=== PATIENT | female | born 1945 | race Caucasian/White ===

== ENCOUNTER 2019-09-12 06:10 | Emergency (ER) | payer MEDICARE, BC, SELFPAY ==
[2019-09-12 06:12] VITALS: BP 210/91; PULSE 88; RESP 20; TEMP 36.6; O2SAT 91; BMI 27.4
--- NOTE | 2019-09-12 06:12 | XR_ITS ---
WS: [id number] RIGHT SHOULDER: 3 VIEW(S) TECHNIQUE: Internal and external rotation with Y view. HISTORY: injury COMPARISON: 01/17/2017 Comminuted fracture with impaction is similar in appearance to the prior examination. No new humeral head fracture identified. New comminuted fracture with displacement involving the distal third of the clavicle. Fracture separa lenore the width of the clavicle. Superior displacement of the medial fracture by 14 mm. XR/XR shoulder RT min 2V* [id number] IMPRESSION: 1. New displaced distal clavicle fracture. 2. Unchanged remote RIGHT humeral head fracture with impaction.
--- NOTE | 2019-09-12 06:24 | W.ED.EXTPRO ---
HPI - Extremity Problem General: Chief complaint: Extremity Injury, Upper Stated complaint: SHOULDER PAIN Time Seen by Provider: 09/12/19 06:14 History of Present Illness: HPI Narrative: 73-year-old female complaining of right shoulder pain she rolled out of bed. She is extremely hard of hearing. Her only complaint is right shoulder pain she has an obvious deformity of the clavicle. She denies striking her head denies loss consciousness this happened when she rolled out of bed at the shelter. This was unwitnessed. Associated symptoms: Deny chest pain, fever(s) or rash Review of Systems Const: Denies: fever, chills, body aches, change in appetite, fatigue or malaise ENMT: Denies: throat pain, ear pain, nasal discharge or nasal congestion Card: Denies: chest pain, edema, shortness of breath on exertion or shortness of breath when lying down Resp: Denies: shortness of breath, productive cough or non-productive cough GI: Denies: abdominal pain, nausea, vomiting, vomiting blood, coffee grounds in vomit, diarrhea, constipation, bloating, blood in stool or black tarry stool : Denies: flank pain, difficulty urinating, painful urination, urinary frequency or urinary urgency Musc: Reports: extremity pain (Right arm) Skin/Breast: Denies: rash or itching Physical Exam Const: COMMON NORMALS: no apparent distress GENERAL APPEARANCE: cooperative and comfortable ORIENTATION/CONSCIOUSNESS: Yes awake, Yes oriented to person, Yes oriented to place and Yes oriented to time HENMT: COMMON NORMALS: normocephalic, head/scalp atraumatic, external ears normal, EAC's normal, TM's normal bilaterally, nasal mucous membranes and turbinates normal, moist oral mucous membranes and oropharynx normal HEAD & SCALP: normocephalic and atraumatic NOSE: nasal mucous membranes and turbinates normal EXTERNAL EAR: Yes external ears normal EXTERNAL AUDITORY CANAL: EAC's normal TYMPANIC MEMBRANE: TM's normal bilaterally Eye: COMMON NORMALS: PERRL, EOMs intact bilaterally, conjunctivae normal and no scleral icterus CONJUNCTIVA: Yes conjunctivae normal PUPIL: Yes PERRL Neck/C-Spine: COMMON NORMALS: full ROM, no lymphadenopathy, supple and no JVD Lymph: LYMPHATIC: no lymphadenopathy noted and no lymphedema noted Chest: OTHER: Obvious deformity of the right clavicle Resp: COMMON NORMALS: normal respiratory effort, no retractions, no use of accessory muscles and clear to auscultation bilaterally AUSCULTATION: clear to auscultation bilaterally Cardio: COMMON NORMALS: no JVD, regular rate, regular rhythm and no murmurs RATE: regular rate RHYTHM: regular rhythm GI: COMMON NORMALS: soft to palpation and no hepatosplenomegaly AUSCULTATION: Yes normoactive bowel sounds PALPATION: Yes soft, No tender, No guarding and Yes no hepatosplenomegaly Extremity: COMMON NORMALS: normal to inspection, normal capillary refill, no clubbing, cyanosis or edema, no calf tenderness and no pedal edema Neuro: SENSORIUM/ORIENTATION: Yes oriented to person, Yes oriented to place and Yes oriented to time Skin: COMMON NORMALS: no rashes or lesions noted NARRATIVE SKIN EXAM: Skin tear right elbow superficial GENERAL SKIN EXAM: no rashes or lesions noted Course Vital Signs: Vital signs: Vital Signs Temperature 97.9 F 09/12/19 06:12 Pulse Rate 83 09/12/19 07:20 Respiratory Rate 17 09/12/19 07:20 Blood Pressure 179/70 09/12/19 07:20 Pulse Oximetry 97 09/12/19 07:20 MDM - Extremity (Nontraumatic) MDM Narrative: Medical decision making narrative: In reviewing the chart radiology had felt there was a lateral condyle fracture is difficult to assess because of her very poor bone density is also questional ulnar fracture. Patient has already gone back to the shelter she was in a sling for the clavicle fracture. We made contact with the shelter, patient has a referral to Ortho later today and will get it splinted there if the Ortho feels it is appropriate. Discharge Plan Discharge Patient Disposition: [facility] Clinical Impression: Fracture of clavicle, Closed fracture lateral condyle humerus, Ulnar fracture Condition: Stable Prescriptions: New hydrocodone-acetaminophen 5-325 mg tablet 1 tab PO Q6H PRN (Reason: pain) Qty: 15 RF: 0 Discharge Orders: Discharge Order (Routine); Ordered 09/12/19 Ordered By: Chinmay Horner Referrals: Shaheed Bills MD [Physician] - (clavicle fracture) Discharge Diet: Usual diet Discharge Activity: Limit activity as instructed Activity Restrictions/Additional Instructions: manager social media will make arrangement for orthopedics consult. Posterior splint and sling until then. Discharge Date/Time: 09/12/19 07:22 Coding Level of Care Code ED First Aid Trainer for Chg Fwd Exam Comprehensive
[2019-09-12 06:33] VITALS: BP 194/63; PULSE 89; RESP 19; O2SAT 95
--- NOTE | 2019-09-12 06:35 | XR_ITS ---
WS: [id number] RIGHT ELBOW: 3 VIEW(S) TECHNIQUE: AP, oblique and lateral. HISTORY: pain after fall COMPARISON: 10/03/2016 Severe osteopenia. There is a nondisplaced lucency through the lateral supracondylar region. Not pres ent on the prior study. There is an additional lucency through the proximal ulna. These lucencies are seen only on one image. Moderate joint effusion. Soft tissue edema. XR/XR elbow RT min 3V* [id number] IMPRESSION: 1. Highly suspicious for nondisplaced fracture involving the lateral humeral s upracondylar. 2. Indeterminate but less likely nondisplaced proximal ulnar fracture. 3. Moderate-sized joint effusion.
[2019-09-12 07:20] VITALS: BP 179/70; PULSE 83; RESP 17; O2SAT 97
--- NOTE | 2019-09-13 10:05 | DCPLANNER ---
scale manager had message to schedule a follow up appointment for patient with ortho. scale manager called the ortho clinic, spoke with Marilynn, gave clinic patients information. scale manager was told that patients information would be printed and reviewed. Clinic will call child support case officer and patient with appointment information.
--- NOTE | 2019-09-14 12:46 | DCPLANNER ---
Patient had a follow up appointment scheduled with ortho for 09.13.19, patient did attend the appointment.
== END 2019-09-12 07:22 | disposition skilled nursing facility (03) ==
PROVIDERS: Emergency Provider Family Medicine; Family Provider Nurse Practitioner Family
DX: S42.001A Fracture of unspecified part of right clavicle, initial encounter for closed fracture (principal); S42.451A Displaced fracture of lateral condyle of right humerus, initial encounter for closed fracture; S52.201A Unspecified fracture of shaft of right ulna, initial encounter for closed fracture; W06.XXXA Fall from bed, initial encounter; Y92.129 Unspecified place in nursing home as the place of occurrence of the external cause
CPT/HCPCS: 12345; 73030; 73080; 99281; 99283

== ENCOUNTER 2019-09-26 12:31 | Outpatient (CLI) | payer MEDICARE, MEDICAID, SELFPAY ==
--- NOTE | 2019-09-26 12:42 | XR_ITS ---
WS: [id number] PROCEDURE: XR chest 2V* [id number] CLINICAL INFORMATION: CHANGE IN MENTAL STATUS COMPARISON: February 22, 2019 FINDINGS: Heart: Normal cardiac silhouette. Tortuous thoracic aorta. Calcification. Lungs: Moderate chronic emphysematous changes. No acute pulmonary infiltrates. Bones: Osteopenia. Thoracolumbar scoliosis. Chronic appearing posttraumatic changes right humerus. Ch ronic appearing right distal clavicular fracture. XR/XR chest 2V* [id number] IMPRESSION: 1. Moderate chronic emphysematous changes. No acute pulmonary infiltrates. 2. No focal pneumonia. 3. Thoracolumbar scoliosis. 4. Chronic appearing posttraumatic changes right distal clavicle and right hum erus.
--- NOTE | 2019-09-26 12:43 | CT_ITS ---
WS: [id number] CT HEAD TECHNIQUE: Noncontrast CT of the head obtained from the skullbase to the vertex. CLINICAL INFORMATION: CHANGE IN MENTAL STATUS COMPARISON: February 21, 2019 DLP: 1984.[address] scans at [facility] use at least one of these dose optimization techniques: automat ed exposure control; mA and/or kV adjustment per patient size (includes targeted exams where dose is matched to clinical indication); or iterative reconstruction. FINDINGS: No evidence of intracranial hemorrhage or mass effect. Ventricular system and basal cisterns are webb nt. Moderate small vessel changes with moderate parenchymal volume loss. Unchanged chronic lacunar in farct left lateral basal ganglia. No extra-axial fluid collections. No evidence of mass or mass effec t. Normal shi-white differentiation. Small amount of fluid in the left sphenoid sinus. Mastoid air cells are well aerated. CT/CT head wo con* [id number] IMPRESSION: 1. No evidence of intracranial hemorrhage or mass effect. 2. Moderate small vessel changes with moderate parenchymal volume loss. 3. Small amount of fluid in the left sphenoid sinus. Mastoid air cells well ae rated. 4. No acute intracranial findings.
== END 2019-09-26 12:32 | disposition home or self-care (01) ==
LOC: RADWPI 12:37
PROVIDERS: Family Provider Nurse Practitioner Family; PCP Family Medicine; Visit Provider Family Medicine
DX: R41.82 Altered mental status, unspecified (principal); J43.8 Other emphysema; M41.85 Other forms of scoliosis, thoracolumbar region
CPT/HCPCS: 70450; 71046

== ENCOUNTER → 2019-10-11 15:42 | Outpatient (BNVA) | payer MEDICARE, SELFPAY | PROVIDERS: Family Provider Nurse Practitioner Family; PCP Family Medicine; Visit Provider Orthopaedic Surgery | DX: S50.01XA Contusion of right elbow, initial encounter (principal); M25.421 Effusion, right elbow; M85.88 Other specified disorders of bone density and structure, other site; X58.XXXA Exposure to other specified factors, initial encounter | CPT/HCPCS: 73070 ==

== ENCOUNTER 2022-03-12 16:49 | Observation (INO) | payer MEDICARE, BC, SELFPAY ==
[2022-03-12 17:11] VITALS: BP 132/82; PULSE 73; RESP 16; TEMP 36.5; O2SAT 96; BMI 26.6
--- NOTE | 2022-03-12 17:58 | ED_ITS ---
HPI - Recheck/Abnormal Lab/Rx General: Chief Complaint: Recheck/Abnormal Lab/Rx Stated Complaint: Hyperkalemia Time Seen by Provider: 03/12/22 17:36 Source: patient Mode of arrival: ambulatory Limitations: no limitations History of Present Illness: 76-year-old female who is here from the shelter she has dementia she states she has been feeling well she had no vomiting no diarrhea but she states that shelter states that they denae labs and her creatinine and potassium were potassium was 6.2 and they have been giving her potassium supplement. Review of Systems Const: Denies: fever(s), chills, body aches or change in appetite Eyes: Denies: blurry vision or eye discomfort ENMT: Denies: throat pain or dental pain Card: Denies: chest pain Resp: Denies: dyspnea GI: Denies: abdominal pain, nausea, vomiting or diarrhea : Denies: dysuria Musc: Denies: neck pain or back pain Skin/Breast: Denies: rash Neuro: Denies: headache(s) Psych: Denies: depression Andry/Lymph: Denies: easy bruising All/Imm: Denies: urticaria PFSH ED PFSH: Medical History (Updated 03/12/22 @ 20:26 by Su Rivera MD) Dementia Social History (Updated 03/12/22 @ 17:59 by Su Rivera MD) Substance/Drug Use: never Physical Exam Const: COMMON NORMALS: no acute distress, patient oriented x3 and healthy appearing HENMT: COMMON NORMALS: normocephalic and atraumatic HEAD & SCALP: normocephalic and atraumatic Eye: COMMON NORMALS: Equal, round and reactive pupils present and EOMs intact bilaterally PUPIL: Yes Equal, round and reactive pupils present Neck/C-Spine: COMMON NORMALS: full ROM and supple Chest: COMMONS NORMALS: normal inspection of the chest and normal palpation of entire chest wall Resp: COMMON NORMALS: normal respiratory effort, No retractions, No use of accessory muscles and clear to auscultation bilaterally AUSCULTATION: clear to auscultation bilaterally Cardio: COMMON NORMALS: regular rate, regular rhythm and No murmurs present (Cardio) RATE: regular rate RHYTHM: regular rhythm GI: COMMON NORMALS: Normal to inspection, nondistended, normoactive bowel sounds present, Soft to palpation, non-tender and no masses PALPATION: Yes Soft to palpation Extremity: COMMON NORMALS: normal to inspection and full ROM Neuro: COMMON NORMALS: patient oriented x3, moves all extremities and no focal motor deficits Psych: COMMON NORMALS: mental status grossly normal, Normal thought process present and cooperative THOUGHT PROCESS: Normal thought process present Skin: COMMON NORMALS: no rashes or lesions noted and no wounds GENERAL SKIN EXAM: no rashes or lesions noted Course Vital Signs: Vital signs: Vital Signs Temperature 97.7 F 03/12/22 17:11 Pulse Rate 87 03/12/22 20:16 Respiratory Rate 22 H 03/12/22 20:16 Blood Pressure 133/86 03/12/22 20:16 Pulse Oximetry 95 03/12/22 20:16 Oxygen Delivery Me thod 03/12/22 20:16 MDM - Recheck/Abnormal Lab/Rx Medical Decision Making Patient presents here with hyperkalemia along with slight acute kidney injury she is still making urine she does take a potassium supplement at the shelter she is also on Lasix. We will give IV fluids insulin D50 and watch for observation at this time she has no EKG changes. Lab Data : 03/12/22 18:15 03/12/22 19:15 Laboratory Results WBC 10.3 10^3/uL (4.0-10.0) H 03/12/22 18:15 RBC 3.95 10^6/uL (4.1-5.3) L 03/12/22 18:15 Hgb 11.8 g/dL (11.5-15.3) 03/12/22 18:15 Hct 37.5 % (37.0-47.0) 03/12/22 18:15 MCV 94.9 fl (81-99) 03/12/22 18:15 MCH 29.9 pg (28.0-34.0) 03/12/22 18:15 MCHC 31.5 g/dL (30.0-36.0) 03/12/22 18:15 RDW 13.3 % (12.1-15.1) 03/12/22 18:15 Plt Count 323 10^3/cmm (130-400) 03/12/22 18:15 MPV 11.4 fL (7.4-10.4) H 03/12/22 18:15 Neut % (Auto) 60.1 % 03/12/22 18:15 Lymph % (Auto) 27.0 % 03/12/22 18:15 Kendall % (Auto) 8.6 % 03/12/22 18:15 Eos % (Auto) 3.1 % 03/12/22 18:15 Baso % (Auto) 0.7 % 03/12/22 18:15 Neut # (Auto) 6.18 10^3/uL (1.8-7.7) 03/12/22 18:15 Lymph # (Auto) 2.8 10^3/uL (0.8-4.8) 03/12/22 18:15 Kendall # (Auto) 0.9 10^3/uL (0.2-0.9) 03/12/22 18:15 Eos # (Auto) 0.3 10^3/uL (0.0-0.8) 03/12/22 18:15 Baso # (Auto) 0.1 10^3/uL (0.0-0.1) 03/12/22 18:15 Nucleated RBC % (auto) 0 % 03/12/22 18:15 Nucleated RBCs # 0.0 /100WBC 03/12/22 18:15 Sodium 129 mmol/L (136-145) L 03/12/22 19:15 Potassium 6.3 mmol/L (3.5-5.1) H 03/12/22 19:15 Chloride 95 mmol/L (98-107) L 03/12/22 19:15 Carbon Dioxide 26 mmol/L (22-29) 03/12/22 19:15 Anion Gap 14.3 (5-19) 03/12/22 19:15 BUN 34 mg/dL (8-23) H 03/12/22 19:15 Creatinine 2.1 mg/dL (0.5-0.9) H 03/12/22 19:15 GFR Calculation Not Reportable 03/12/22 19:15 Glucose 89 mg/dL (65-115) 03/12/22 19:15 Calculated Osmolality 275 mOsm/kg (285-295) L 03/12/22 19:15 Calcium 9.7 mg/dL (8.5-10.5) 03/12/22 19:15 Total Bilirubin 0.2 mg/dL (0.15-1.2) 03/12/22 18:15 ALT 11 U/L (0-33) 03/12/22 18:15 Total Protein 7.7 g/dL (6.6-8.7) 03/12/22 18:15 Albumin 4.6 g/dL (3.5-5.2) 03/12/22 18:15 Globulin 3.1 g/dL (1.3-4.6) 03/12/22 18:15 EKG Data EKG 1: I personally reviewed and interpreted this EKG as follows: EKG interpretation date: 03/12/22 EKG interpretation time: 18:24 Interpretation: nsr hr [address] or t wave abnormalities qrs 80 qtc 373 Discharge Plan Discharge Patient Disposition: Admitted As Inpatient Clinical Impression: Acute hyperkalemia Prescriptions: No Action albuterol sulfate 90 mcg/actuation HFA aerosol inhaler 2 puff INHALATION Q6H PRN cetirizine [Zyrtec] 10 mg tablet 5 mg PO DAILY PRN budesonide-formoterol [Symbicort] 80-4.5 mcg/actuation HFA aerosol inhaler 2 puff INHALATION BID alendronate [Fosamax] 70 mg tablet PO acetaminophen [Tylenol] 325 mg capsule 325 mg PO QID PRN polyethylene glycol 3350 [Miralax] 17 gram/dose powder 17 gm PO DAILY ranitidine HCl 300 mg capsule 300 mg PO BID furosemide [Lasix] 40 mg tablet 40 mg PO DAILY potassium chloride 10 mEq capsule, extended release 10 meq PO DAILY ondansetron HCl [Zofran] 4 mg tablet 4 mg PO Q6H hydrocodone-acetaminophen 5-325 mg tablet 1 tab PO Q6H PRN (Reason: pain) Qty: 15 0RF Referrals: Tony Arana MD [Primary Care Provider] - Coding Level of Care Code ED Training Engineer for Chg Fwd Exam Comprehensive
--- NOTE | 2022-03-12 18:01 | ECG_ITS ---
[facility] Test Date: 2022-03-12 Pat Name: Kaley Chen Department: Room: Gender: Female Health Science Instructor: : 1945 Requested By: Su Rivera Order Number: [id number] Juan Jose MD: Jeffery Galvez M.D. Measurements Intervals [place] Rate: 75 P: 74 NC: 150 QRS: 85 QRSD: 80 T: 51 QT: 344 QTc: 385 Interpretive Statements SINUS RHYTHM LOW QRS VOLTAGE IN PRECORDIAL LEADS [QRS DEFLECTION < 1.0 mV IN CHEST LEADS] Compared to ECG 02/21/2019 16:35:31 Low QRS voltage now present Electronically Signed On 03-14-2022 22:02:56 CDT by Jeffery Galvez M.D. [id number]
[2022-03-12 18:17] VITALS: BP 160/62; PULSE 76; RESP 16; O2SAT 93
[2022-03-12 18:22] LABS: Basophils # 0.1 10^3/uL (0.0-0.1); Basophils % 0.7 %; Eosinophils # 0.3 10^3/uL (0.0-0.8); Eosinophils % 3.1 %; Hematocrit 37.5 % (37.0-47.0); Hemoglobin 11.8 g/dL (11.5-15.3); Lymphocytes # 2.8 10^3/uL (0.8-4.8); Mean Corpuscular HGB Conc 31.5 g/dL (30.0-36.0); Mean Corpuscular Hemoglobin 29.9 pg (28.0-34.0); Mean Corpuscular Volume 94.9 fl (81-99); Mean Platelet Volume 11.4 fL (7.4-10.4); Monocytes # 0.9 10^3/uL (0.2-0.9); Monocytes % 8.6 %; Neutrophils # 6.18 10^3/uL (1.8-7.7); Neutrophils % 60.1 %; Nucleated Red Blood Cells % 0 %; Platelet Count 323 10^3/cmm (130-400); Red Blood Count 3.95 10^6/uL (4.1-5.3); Red Cell Distribution Width 13.3 % (12.1-15.1); White Blood Count 10.3 10^3/uL (4.0-10.0)
[2022-03-12 19:35] LABS: Anion Gap 14.3 (5-19); Blood Urea Nitrogen 34 mg/dL (8-23); Calcium 9.7 mg/dL (8.5-10.5); Carbon Dioxide 26 mmol/L (22-29); Chloride 95 mmol/L (98-107); Glucose 89 mg/dL (65-115); Osmolality Calculated 275 mOsm/kg (285-295); Potassium 6.3 mmol/L (3.5-5.1); Sodium 129 mmol/L (136-145)
[2022-03-12] MEDS: insulin regular-human 100 units/1 mL 10 UNIT IVP (20:09)
[2022-03-12] MEDS: dextrose 50% syringe 50 mL IVP (20:11)
[2022-03-12] MEDS: sodium chloride 0.9% 1,000 ML 999 ML IV (20:11)
[2022-03-12 20:16] VITALS: BP 133/86; PULSE 87; RESP 22; O2SAT 95
[2022-03-12 20:48] VITALS: BP 143/84; BP 99/65; PULSE 87; PULSE 99; RESP 15; RESP 16; TEMP 36.4; TEMP 36.5; O2SAT 94
[2022-03-12 20:49] LABS: Glucose Point of Care 164 mg/dL (70-110)
--- NOTE | 2022-03-12 20:50 | P.HP_ITS ---
Providers/Chief Complaint Admitting Physician: Jose Willett MD Primary Care Provider: Tony Arana MD Chief Complaint: Hyperkalemia History of Present Illness Kaley Chen is a 76 year old female with past medical history of hypertension COPD, dementia ,[facility] resident was brought from the [facility] for evaluation of abnormal labs, BMP drawn at [facility] had shown, hyperkalemia with serum potassium of 6.2, as well as elevated serum creatinine , Patient is on oral potassium supplement at [facility]. Currently she denies any chest pain shortness of breath nausea vomiting abdominal pain diarrhea constipation. She is being admitted for the monitoring of abnormal labs. EKG done in the ER: Has not shown any signs of hyperkalemia: EKG is sinus rhythm with low QRS voltage in precordial leads. Patient received dextrose and insulin in the ER. Her other pertinent labs: WBC 10.3, H&H 11/37 , PLT : 323 , serum sodium 129, serum potassium 6.3, BUN:34 , serum creatinine 2.1 Review of Systems General: Reports: 10 or more systems reviewed and unremarkable except in HPI and below Const: Denies: fever(s) Card: Denies: swelling of feet/ankles Resp: Denies: dyspnea or productive cough GI: Denies: abdominal pain, nausea, vomiting, diarrhea or constipation Medications/Allergies Home Medications Medication Instructions Recorded Confirmed Last Taken Type hydrocodone 5 mg-acetaminophen 325 1 tab PO Q6H PRN pain #15 tabs 09/12/19 11/12/19 Unknown Rx mg tablet acetaminophen 325 mg capsule 325 mg PO QID PRN 09/13/19 11/12/19 Unknown History (Tylenol) albuterol sulfate 90 mcg/actuation 2 puff inhalation Q6H PRN 09/13/19 11/12/19 Unknown History aerosol inhaler alendronate 70 mg tablet (Fosamax) PO 09/13/19 11/12/19 Unknown History budesonide-formoterol HFA 80 2 puff inhalation BID 09/13/19 11/12/19 Unknown History mcg-4.5 mcg/actuation aerosol inhaler (Symbicort) cetirizine 10 mg tablet (Zyrtec) 5 mg PO DAILY PRN 09/13/19 11/12/19 Unknown History furosemide 40 mg tablet (Lasix) 40 mg PO DAILY 09/13/19 11/12/19 Unknown History ondansetron HCl 4 mg tablet 4 mg PO Q6H 09/13/19 11/12/19 Unknown History (Zofran) polyethylene glycol 3350 17 17 gm PO DAILY 09/13/19 11/12/19 Unknown History gram/dose oral powder (Miralax) potassium chloride 10 mEq 10 meq PO DAILY 09/13/19 11/12/19 Unknown History capsule,extended release ranitidine HCl 300 mg capsule 300 mg PO BID 09/13/19 11/12/19 Unknown History Allergies Allergy/AdvReac Type Severity Reaction Status Date / Time Penicillins Allergy Unknown Verified 11/12/19 13:53 PFSH Acute PFSH: Medical History (Updated 03/12/22 @ 21:04 by Jose Willett MD) Dementia Social History (Updated 03/12/22 @ 17:59 by Su Rivera MD) Substance/Drug Use: never Vitals/I&O/Wt Last Vital Signs Temp 97.7 F 03/12/22 17:11 Pulse 87 03/12/22 20:16 Resp 22 H 03/12/22 20:16 BP 133/86 03/12/22 20:16 Pulse Ox 95 03/12/22 20:16 O2 Del Method 03/12/22 20:16 Weight last 48 hrs Weight 74.843 kg Physical Exam HENMT: COMMON NORMALS: normocephalic and atraumatic HEAD & SCALP: no rmocephalic and atraumatic Resp: COMMON NORMALS: clear to auscultation bilaterally EFFORT & INSPECTION: Yes symmetric chest movement AUSCULTATION: clear to auscultation bilaterally Cardio: COMMON NORMALS: regular rate, regular rhythm, S1 normal heart sound present, S2 normal heart sound present, No gallops present (Cardio), No murmurs present (Cardio), No rub (Cardio) and Peripheral pulses 2+ throughout RATE: regular rate RHYTHM: regular rhythm HEART SOUNDS: S1 normal heart sound present and S2 normal heart sound present PERIPHERAL PULSES: Peripheral pulses 2+ throughout GI: COMMON NORMALS: Normal to inspection, nondistended, normoactive bowel sounds present, Soft to palpation, non-tender, No hepatosplenomegaly present and no masses AUSCULTATION: Yes normoactive bowel sounds PALPATION: Yes Soft to palpation RECTAL EXAM: deferred Extremity: COMMON NORMALS: no clubbing, cyanosis or edema and no pedal edema Neuro: COMMON NORMALS: patient oriented x3 Data : 03/12/22 18:15 03/12/22 19:15 A&P Assessment and plan (1) Acute hyperkalemia: (2) Hypertension: (3) COPD (chronic obstructive pulmonary disease): (4) Acute kidney injury superimposed on CKD: Plan 76 year old female with past medical history of hypertension COPD, dementia ,[facility] resident was brought from the [facility] for evaluation of abnormal labs, BMP drawn at [facility] had shown, hyperkalemia with serum potassium of 6.2, as well as elevated serum creatinine. Assessment: Acute hyperkalemia Euvolemic hyponatremia HARITHA on CKD versus CKD: Currently baseline serum creatinine is unknown Hypertension COPD Dementia Plan: Patient has received dextrose and insulin in the ER, for now we will monitor BMP, continue telemetry monitoring. Current serum creatinine is 2.1, baseline serum creatinine is unknown Random urine sodium Random urine creatinine Random total protein FeNA Random UPCR Follow urinalysis Urine osmolality Serum osmolality TSH Random cortisol Avoid nephrotoxic's Monitor intake output charting Continue gentle IV hydration with normal saline at 75 cc an hour Stop p.o. potassium Continue home inhalers CODE STATUS: Full code DVT prophylaxis: On heparin Attestations Medical Necessity Statement*: Patient is in hospital for management of acute hyperkalemia. Coding Level of Care Code Acute Cafe Operator for Javier Fwd Exam Detailed Diagnoses Acute hyperkalemia E87.5 Hypertension I10 COPD (chronic obstructive pulmonary disease) J44.9 Acute kidney injury superimposed on CKD N17.9; N18.9
[2022-03-12 20:51] LABS: Alanine Aminotransferase 7 U/L (0-33); Albumin Level 4.2 g/dL (3.5-5.2); Alkaline Phosphatase 25 U/L (35-105); Aspartate Amino Transferase 13 U/L (0-32); Globulin 2.9 g/dL (1.3-4.6); Total Bilirubin 0.3 mg/dL (0.15-1.2); Total Protein 7.1 g/dL (6.6-8.7)
[2022-03-12 20:53] VITALS: BP 133/86; PULSE 87; RESP 22; O2SAT 95
[2022-03-12 21:58] VITALS: BMI 26.6
[2022-03-12 22:18] VITALS: BP 119/69; PULSE 88; RESP 22; TEMP 36.6; O2SAT 99
[2022-03-12] MEDS: sodium chloride 0.9% 1,000 ML 75 ML IV (22:49)
[2022-03-12] MEDS: heparin 5,000 unit/mL INJ 1 mL 5000 UNIT SUBCUT (22:49)
[2022-03-13] VITALS (7 sets, daily range): BP systolic 99–157; BP diastolic 65–86; PULSE 75–88; RESP 15–18; TEMP 36.4–36.6; O2SAT 93–98
[2022-03-13 05:35] LABS: Basophils # 0.1 10^3/uL (0.0-0.1); Basophils % 0.6 %; Eosinophils # 0.1 10^3/uL (0.0-0.8); Eosinophils % 0.9 %; Hematocrit 35.9 % (37.0-47.0); Lymphocytes # 2.1 10^3/uL (0.8-4.8); Lymphocytes % 19.5 %; Mean Corpuscular HGB Conc 30.6 g/dL (30.0-36.0); Mean Corpuscular Hemoglobin 29.6 pg (28.0-34.0); Mean Corpuscular Volume 96.5 fl (81-99); Mean Platelet Volume 10.8 fL (7.4-10.4); Monocytes # 0.6 10^3/uL (0.2-0.9); Monocytes % 5.8 %; Neutrophils # 7.63 10^3/uL (1.8-7.7); Neutrophils % 72.6 %; Nucleated Red Blood Cells % 0 %; Platelet Count 302 10^3/cmm (130-400); Red Blood Count 3.72 10^6/uL (4.1-5.3); Red Cell Distribution Width 13.3 % (12.1-15.1); White Blood Count 10.5 10^3/uL (4.0-10.0)
[2022-03-13 06:08] LABS: Anion Gap 12.8 (5-19); Blood Urea Nitrogen 32 mg/dL (8-23); Calcium 9.6 mg/dL (8.5-10.5); Carbon Dioxide 25 mmol/L (22-29); Chloride 99 mmol/L (98-107); Creatinine Clr Calc Pharmacy 24.3642; Glucose 93 mg/dL (65-115); Magnesium 2.1 mg/dL (1.7-2.3); Osmolality Calculated 279 mOsm/kg (285-295); Phosphorus 4.3 mg/dL (2.5-4.5); Potassium 5.8 mmol/L (3.5-5.1); Sodium 131 mmol/L (136-145)
[2022-03-13] MEDS: heparin 5,000 unit/mL INJ 1 mL 5000 UNIT SUBCUT ×2 (08:52→20:48)
[2022-03-13] MEDS: pantoprazole DR 40 mg Tablet PO (10:01)
[2022-03-13] MEDS: polyethylene glycol 3350 Pkt 17 gm PO (10:01)
--- NOTE | 2022-03-13 14:16 | P.PN_ITS ---
Subjective Subjective: She is pleasantly confused, cannot tell me her whereabouts. Denies any pain. Vitals/I&O/Wt Last Vital Signs Temp 97.8 F 03/13/22 11:53 Pulse 75 03/13/22 11:53 Resp 16 03/13/22 11:53 BP 115/72 03/13/22 11:53 Pulse Ox 98 03/13/22 11:53 O2 Del Method 03/13/22 11:53 03/12/22 03/13/22 03/13/22 22:59 06:59 14:59 Intake Total 1480 / 1480 0 / 1480 240 / 240 Balance 1480 / 1480 0 / 1480 240 / 240 Weight last 48 hrs Weight 74.843 kg Weight 74.843 kg Physical Exam Narrative: She is awake and alert. She has removed her dentures and is cleaning them with a napkin. Const: COMMON NORMALS: alert GENERAL APPEARANCE: cooperative ORIENTATION/CONSCIOUSNESS: Yes awake HENMT: COMMON NORMALS: oropharynx normal Neck/C-Spine: COMMON NORMALS: no JVD Resp: COMMON NORMALS: normal respiratory effort and clear to auscultation bilaterally AUSCULTATION: clear to auscultation bilaterally Cardio: COMMON NORMALS: no JVD, regular rhythm, S1 normal heart sound present, S2 normal heart sound present and No murmurs present (Cardio) RHYTHM: regular rhythm HEART SOUNDS: S1 normal heart sound present and S2 normal heart sound present GI: COMMON NORMALS: Normal to inspection, nondistended, normoactive bowel sounds present, Soft to palpation and non-tender PALPATION: Yes Soft to palpation Extremity: COMMON NORMALS: no joint enlargement and no pedal edema Neuro: COMMON NORMALS: moves all extremities SENSORIUM/ORIENTATION: Yes alert Skin: COMMON NORMALS: no rashes or lesions noted GENERAL SKIN EXAM: no rashes or lesions noted Data : 03/13/22 04:35 03/13/22 04:35 A&P Assessment and plan (1) Acute hyperkalemia: Potassium noted to be decreasing. We will recheck again BMP this afternoon. Change diet to low potassium. Continue to withhold potassium supplement and ARB (2) Acute kidney injury superimposed on CKD: Renal function appears to have stabilized with minimal improvement in HARITHA, creatinine down to 2, BUN down to 32. Continue gentle fluid challenge. Hold Lasix. Hold ARB. (3) Hypertension: (4) COPD (chronic obstructive pulmonary disease): Plan Euvolemic hyponatremia: Improving. Continue regular diet. Dementia Attestations Medical Necessity Statement*: Continue hospitalization for assessment of management of hyperkalemia, HARITHA on CKD. Coding Level of Care Code Acute Manager Quality Improvement for g Fwd Exam Comprehensive Diagnoses Acute hyperkalemia E87.5 Acute kidney injury superimposed on CKD N17.9; N18.9 Hypertension I10 COPD (chronic obstructive pulmonary disease) J44.9
[2022-03-13 15:08] LABS: Anion Gap 12.5 (5-19); Blood Urea Nitrogen 32 mg/dL (8-23); Calcium 9.2 mg/dL (8.5-10.5); Carbon Dioxide 23 mmol/L (22-29); Chloride 100 mmol/L (98-107); Creatinine Clr Calc Pharmacy 24.3642; Glucose 100 mg/dL (65-115); Osmolality Calculated 277 mOsm/kg (285-295); Potassium 5.5 mmol/L (3.5-5.1); Sodium 130 mmol/L (136-145)
[2022-03-13] MEDS: acetaminophen 325 mg Tablet 650 MG PO (17:27)
[2022-03-13] MEDS: sodium chloride 0.9% 1,000 ML 75 ML IV (17:28)
[2022-03-14] VITALS (7 sets, daily range): BP systolic 123–150; BP diastolic 71–81; PULSE 75–97; RESP 16–18; TEMP 36.6–36.8; O2SAT 90–95
[2022-03-14 03:18] LABS: Urine Protein Random 13 mg/dL
[2022-03-14] MEDS: sodium chloride 0.9% 1,000 ML 75 ML IV ×2 (05:45→18:48)
[2022-03-14 06:09] LABS: Basophils # 0.1 10^3/uL (0.0-0.1); Basophils % 0.7 %; Eosinophils # 0.3 10^3/uL (0.0-0.8); Eosinophils % 4.6 %; Hematocrit 32.5 % (37.0-47.0); Hemoglobin 10.2 g/dL (11.5-15.3); Lymphocytes # 1.8 10^3/uL (0.8-4.8); Lymphocytes % 23.8 %; Mean Corpuscular HGB Conc 31.4 g/dL (30.0-36.0); Mean Corpuscular Volume 95.6 fl (81-99); Mean Platelet Volume 10.8 fL (7.4-10.4); Monocytes # 0.6 10^3/uL (0.2-0.9); Monocytes % 8.6 %; Neutrophils # 4.53 10^3/uL (1.8-7.7); Neutrophils % 61.8 %; Nucleated Red Blood Cells % 0 %; Platelet Count 272 10^3/cmm (130-400); Red Cell Distribution Width 13.4 % (12.1-15.1); White Blood Count 7.3 10^3/uL (4.0-10.0)
[2022-03-14 06:46] LABS: Anion Gap 15.4 (5-19); Blood Urea Nitrogen 26 mg/dL (8-23); Calcium 9.2 mg/dL (8.5-10.5); Carbon Dioxide 24 mmol/L (22-29); Chloride 108 mmol/L (98-107); Glucose 83 mg/dL (65-115); Osmolality Calculated 298 mOsm/kg (285-295); Potassium 5.4 mmol/L (3.5-5.1); Sodium 142 mmol/L (136-145)
[2022-03-14] MEDS: polyethylene glycol 3350 Pkt 17 gm PO (08:52)
[2022-03-14] MEDS: heparin 5,000 unit/mL INJ 1 mL 5000 UNIT SUBCUT ×2 (08:52→19:57)
[2022-03-14] MEDS: pantoprazole DR 40 mg Tablet PO (08:52)
--- NOTE | 2022-03-14 20:27 | P.PN_ITS ---
Subjective Subjective: She reports he is doing well. Denies pain or discomfort. Pleasantly confused. Vitals/I&O/Wt Last Vital Signs Temp 98.2 F 03/14/22 16:00 Pulse 75 03/14/22 16:00 Resp 16 03/14/22 16:00 BP 123/71 03/14/22 16:00 Pulse Ox 95 03/14/22 16:00 O2 Del Method 03/14/22 16:00 03/14/22 03/14/22 03/14/22 06:59 14:59 22:59 Intake Total 1000 / 2960 240 / 240 1098.75 / 1338.75 Balance 1000 / 2960 240 / 240 1098.75 / 1338.75 Weight last 48 hrs Weight 74.843 kg Physical Exam Const: COMMON NORMALS: alert GENERAL APPEARANCE: cooperative ORIENTATION/CONSCIOUSNESS: Yes awake HENMT: COMMON NORMALS: oropharynx normal Neck/C-Spine: COMMON NORMALS: no JVD Resp: COMMON NORMALS: normal respiratory effort and clear to auscultation bilaterally AUSCULTATION: clear to auscultation bilaterally Cardio: COMMON NORMALS: no JVD, regular rhythm, S1 normal heart sound present, S2 normal heart sound present and No murmurs present (Cardio) RHYTHM: regular rhythm HEART SOUNDS: S1 normal heart sound present and S2 normal heart sound present GI: COMMON NORMALS: Normal to inspection, nondistended, normoactive bowel sounds present, Soft to palpation and non-tender PALPATION: Yes Soft to palpation Extremity: COMMON NORMALS: no joint enlargement and no pedal edema Neuro: COMMON NORMALS: moves all extremities SENSORIUM/ORIENTATION: Yes alert Skin: COMMON NORMALS: no rashes or lesions noted GENERAL SKIN EXAM: no rashes or lesions noted Data : 03/14/22 05:28 03/14/22 05:28 A&P Assessment and plan (1) Acute hyperkalemia: Continue to gradually improve hyperkalemia. Continue to withhold potassium supplement and ARB. Low potassium diet. (2) Acute kidney injury superimposed on CKD: Now improving HARITHA, creatinine at 1.6. Per discussion with case management cannot discharge today, should be able to discharge to long-term tomorrow. Continue gentle fluid challenge. Hold Lasix. Hold ARB. (3) Hypertension: (4) COPD (chronic obstructive pulmonary disease): Plan Euvolemic hyponatremia: Improving. Continue regular diet. Dementia Attestations Medical Necessity Statement*: Continue hospitalization for assessment of hyperkalemia, HARITHA, pending return to residential facility. Coding Level of Care Code Acute Repair Supervisor for Chg Fwd Diagnoses Acute hyperkalemia E87.5 Acute kidney injury superimposed on CKD N17.9; N18.9 Hypertension I10 COPD (chronic obstructive pulmonary disease) J44.9
[2022-03-15] VITALS: BP 138/69; PULSE 68; RESP 15; TEMP 36.5; O2SAT 96
[2022-03-15 04:00] VITALS: BP 131/77; PULSE 78; RESP 16; TEMP 36.6; O2SAT 96
[2022-03-15 05:04] LABS: Basophils % 0.5 %; Eosinophils # 0.3 10^3/uL (0.0-0.8); Eosinophils % 4.3 %; Hematocrit 31.1 % (37.0-47.0); Hemoglobin 9.8 g/dL (11.5-15.3); Lymphocytes # 2.2 10^3/uL (0.8-4.8); Lymphocytes % 27.3 %; Mean Corpuscular HGB Conc 31.5 g/dL (30.0-36.0); Mean Corpuscular Hemoglobin 30.1 pg (28.0-34.0); Mean Corpuscular Volume 95.4 fl (81-99); Mean Platelet Volume 10.2 fL (7.4-10.4); Monocytes # 0.7 10^3/uL (0.2-0.9); Monocytes % 8.4 %; Neutrophils # 4.67 10^3/uL (1.8-7.7); Neutrophils % 59.2 %; Nucleated Red Blood Cells % 0 %; Platelet Count 261 10^3/cmm (130-400); Red Blood Count 3.26 10^6/uL (4.1-5.3); Red Cell Distribution Width 13.5 % (12.1-15.1); White Blood Count 7.9 10^3/uL (4.0-10.0)
[2022-03-15 05:23] LABS: Blood Urea Nitrogen 18 mg/dL (8-23); Calcium 8.8 mg/dL (8.5-10.5); Carbon Dioxide 24 mmol/L (22-29); Chloride 107 mmol/L (98-107); Glucose 82 mg/dL (65-115); Osmolality Calculated 291 mOsm/kg (285-295); Sodium 140 mmol/L (136-145)
[2022-03-15 07:53] VITALS: PULSE 86; RESP 16; O2SAT 93
[2022-03-15 08:00] VITALS: BP 160/84; PULSE 85; RESP 15; TEMP 36.8; O2SAT 93
[2022-03-15] MEDS: heparin 5,000 unit/mL INJ 1 mL 5000 UNIT SUBCUT (08:07)
[2022-03-15] MEDS: pantoprazole DR 40 mg Tablet PO (08:07)
[2022-03-15] MEDS: sodium chloride 0.9% 1,000 ML 75 ML IV (08:07)
[2022-03-15] MEDS: polyethylene glycol 3350 Pkt 17 gm PO (08:07)
--- NOTE | 2022-03-15 09:08 | PC.SOCIAL ---
Imm update Imm updated with patient at bedside, left copy of page 2 at bedside. Patient verbalized understanding. Copy in chart initialed, dated and timed.
[2022-03-15 12:00] VITALS: BP 146/87; PULSE 76; RESP 16; TEMP 36.8; O2SAT 93
--- NOTE | 2022-03-15 12:37 | P.DS_ITS ---
Discharge Providers Date of Admission: 03/12/22 20:43 Date of Discharge: March 15, 2022 Attending Provider at Admission: Jose Willett MD Attending Provider at Discharge: Jaxon Pierre MD Primary Care Provider: Tony Arana MD Diagnoses at Discharge Discharge Diagnosis (1) Acute hyperkalemia: Status: Acute (2) Acute kidney injury superimposed on CKD: Status: Acute (3) Hypertension: Status: Acute (4) COPD (chronic obstructive pulmonary disease): Status: Acute Reason for Visit Reason for Visit: Hyperkalemia Brief History: History as per HPI: Kaley Chen is a 76 year old female with past medical history of hypertension COPD, dementia ,halfway resident was brought from the halfway for evaluation of abnormal labs, BMP drawn at halfway had shown, hyperkalemia with serum potassium of 6.2, as well as elevated serum creatinine. Patient is on oral potassium supplement at halfway. Currently she denies any chest pain shortness of breath nausea vomiting abdominal pain diarrhea constipation. She is being admitted for the monitoring of abnormal labs. EKG done in the ER: Has not shown any signs of hyperkalemia: EKG is sinus rhythm with low QRS voltage in precordial leads.? Patient received dextrose and insulin in the ER. Her other pertinent labs: WBC 10.3, H&H 11/37 , PLT : 323 , serum sodium 129, serum potassium 6.3, BUN:34 , serum creatinine 2.1 Hospital Course Hospital Course Patient was admitted for further evaluation and management of hyperkalemia and what seems to be HARITHA on CKD. Her abnormal labs are most likely secondary polypharmacy at halfway. Her home dose of ARB and potassium were stopped. She was treated with hyperkalemia cocktail along with starting on gentle IV hydration. She responded well to the treatment. Her hyperkalemia has resolved. Creatinine is trending down as well. It seems patient is most likely down to her baseline creatinine though baseline creatinine is not available for last 2 years. She has been discharged back to halfway in hemodynamically stable condition on adjusted medications. Patient's hospitalization otherwise remained unremarkable. Physical Exam Narrative: She is awake and alert. Const: COMMON NORMALS: patient oriented x3 and alert GENERAL APPEARANCE: cooperative ORIENTATION/CONSCIOUSNESS: Yes awake HENMT: COMMON NORMALS: normocephalic, atraumatic and oropharynx normal HEAD & SCALP: normocephalic and atraumatic Neck/C-Spine: COMMON NORMALS: no JVD Resp: COMMON NORMALS: normal respiratory effort and clear to auscultation bilaterally EFFORT & INSPECTION: Yes symmetric chest movement AUSCULTATION: clear to auscultation bilaterally Cardio: COMMON NORMALS: no JVD, regular rate, regular rhythm, S1 normal heart sound present, S2 normal heart sound present, No gallops present (Cardio), No murmurs present (Cardio), No rub (Cardio) and Peripheral pulses 2+ throughout RATE: regular rate RHYTHM: regular rhythm HEART SOUNDS: S1 normal heart sound present and S2 normal heart sound present PERIPHERAL PULSES: Peripheral pulses 2+ throughout GI: COMMON NORMALS: Normal to inspection, nondistended, normoactive bowel sounds present, Soft to palpation, non-tender, No hepatosplenomegaly present and no masses AUSCULTATION: Yes normoactive bowel sounds PALPATION: Yes Soft to palpation and Yes No hepatosplenomegaly present RECTAL EXAM: deferred : COMMON NORMALS: Yes no CVA tenderness BLADDER/KIDNEY EXAM: Yes no CVA tenderness Back/Pelvis: COMMON NORMALS: no CVA tenderness Extremity: COMMON NORMALS: no joint enlargement, no clubbing, cyanosis or edema and no pedal edema Neuro: COMMON NORMALS: patient oriented x3 and moves all extremities SENSORIUM/ORIENTATION: Yes alert Skin: COMMON NORMALS: no rashes or lesions noted GENERAL SKIN EXAM: no rashes or lesions noted Discharge Data Studies Completed and Pending Pending at discharge Category Date Time Status Creatinine Urine, Random Routine Lab 03/12/22 20:48 Uncollected SARS Covid-2 Antigen Routine Lab 03/15/22 10:48 Received Urinalysis Routine Lab 03/12/22 20:49 Uncollected Urine Random Sodium Routine Lab 03/12/22 20:48 Uncollected Laboratory Results WBC 7.9 10^3/uL (4.0-10.0) 03/15/22 04:50 RBC 3.26 10^6/uL (4.1-5.3) L 03/15/22 04:50 Hgb 9.8 g/dL (11.5-15.3) L 03/15/22 04:50 Hct 31.1 % (37.0-47.0) L 03/15/22 04:50 MCV 95.4 fl (81-99) 03/15/22 04:50 MCH 30.1 pg (28.0-34.0) 03/15/22 04:50 MCHC 31.5 g/dL (30.0-36.0) 03/15/22 04:50 RDW 13.5 % (12.1-15.1) 03/15/22 04:50 Plt Count 261 10^3/cmm (130-400) 03/15/22 04:50 MPV 10.2 fL (7.4-10.4) 03/15/22 04:50 Neut % (Auto) 59.2 % 03/15/22 04:50 Lymph % (Auto) 27.3 % 03/15/22 04:50 [place] % (Auto) 8.4 % 03/15/22 04:50 Eos % (Auto) 4.3 % 03/15/22 04:50 Baso % (Auto) 0.5 % 03/15/22 04:50 Neut # (Auto) 4.67 10^3/uL (1.8-7.7) 03/15/22 04:50 Lymph # (Auto) 2.2 10^3/uL (0.8-4.8) 03/15/22 04:50 [place] # (Auto) 0.7 10^3/uL (0.2-0.9) 03/15/22 04:50 Eos # (Auto) 0.3 10^3/uL (0.0-0.8) 03/15/22 04:50 Baso # (Auto) 0.0 10^3/uL (0.0-0.1) 03/15/22 04:50 Nucleated RBC % (auto) 0 % 03/15/22 04:50 Nucleated RBCs # 0.0 /100WBC 03/15/22 04:50 Sodium 140 mmol/L (136-145) 03/15/22 04:50 Potassium 5.0 mmol/L (3.5-5.1) 03/15/22 04:50 Chloride 107 mmol/L (98-107) 03/15/22 04:50 Carbon Dioxide 24 mmol/L (22-29) 03/15/22 04:50 Anion Gap 14.0 (5-19) 03/15/22 04:50 BUN 18 mg/dL (8-23) 03/15/22 04:50 Creatinine 1.4 mg/dL (0.5-0.9) H 03/15/22 04:50 GFR Calculation Not Reportable 03/15/22 04:50 Glucose 82 mg/dL (65-115) 03/15/22 04:50 POC Glucose 164 mg/dL (70-110) H 03/12/22 20:45 Calculated Osmolality 291 mOsm/kg (285-295) 03/15/22 04:50 Calcium 8.8 mg/dL (8.5-10.5) 03/15/22 04:50 Phosphorus 4.3 mg/dL (2.5-4.5) 03/13/22 04:35 Magnesium 2.1 mg/dL (1.7-2.3) 03/13/22 04:35 Total Bilirubin 0.3 mg/dL (0.15-1.2) 03/12/22 19:15 AST 13 U/L (0-32) 03/12/22 19:15 ALT 7 U/L (0-33) 03/12/22 19:15 Alkaline Phosphatase 25 U/L (35-105) L 03/12/22 19:15 Total Protein 7.1 g/dL (6.6-8.7) 03/12/22 19:15 Albumin 4.2 g/dL (3.5-5.2) 03/12/22 19:15 Globulin 2.9 g/dL (1.3-4.6) 03/12/22 19:15 U Random Total Protein 13 mg/dL 03/14/22 02:50 Vitals Last Vital Signs Temp 98.2 F 03/15/22 08:00 Pulse 85 03/15/22 08:00 Resp 15 03/15/22 08:00 BP 160/84 03/15/22 08:00 Pulse Ox 93 03/15/22 08:00 O2 Del Method 03/15/22 08:00 Discharge Plan Discharge Patient Disposition: Xfer SNF Condition: Stable Prescriptions: New amlodipine 5 mg tablet 5 mg PO DAILY Qty: 30 0RF Continued albuterol sulfate 90 mcg/actuation HFA aerosol inhaler 2 puff INHALATION Q6H PRN (Reason: Shortness Of Breath Or Wheezing) cetirizine [Zyrtec] 10 mg tablet 5 mg PO DAILY budesonide-formoterol [Symbicort] 80-4.5 mcg/actuation HFA aerosol inhaler 2 puff INHALATION BID acetaminophen [Tylenol] 325 mg capsule 650 mg PO QID PRN (Reason: pain/fever) polyethylene glycol 3350 [Miralax] 17 gram/dose powder 17 gm PO DAILY omeprazole 20 mg capsule,delayed release(DR/EC) 20 mg PO DAILY Spiriva with HandiHaler 18 mcg capsule, w/inhalation device 1 cap inhalation DAILY Rx Instructions: inhale 2 x's with 1 capsule Tums 300 mg (750 mg) Tablet,Chewable 600 mg PO Q4H PRN (Reason: Heartburn) Vitamin D3 25 mcg (1,000 unit) Capsule 25 mcg PO DAILY Ocuvite Tablet 1 tab PO DAILY glycerin (adult) Suppository 1 supp IA DAILY PRN (Reason: Constipation) Changed furosemide [Lasix] 40 mg tablet 40 mg PO DAILY PRN (Reason: Lower limb swelling or shortness of breath) Qty: 10 0RF Discontinued potassium chloride 10 mEq capsule, extended release 10 meq PO DAILY valsartan 80 mg tablet 160 mg PO DAILY Discharge Orders: Discharge Order (Routine); Ordered 03/15/22 Ordered By: Jaxon Pierre Referrals: Tony Arana MD [Primary Care Provider] - 4-7 days Patient Instructions: Opioid Safety Activity Restrictions/Additional Instructions: Valsartan, potassium has been stopped. Lasix has been changed to as needed basis. Amlodipine 5 mg has been started for high blood pressure. Repeat BMP in 1 week. Discharge Attestations Time Spent in Discharge Care*: greater than 30 min Specific Discharge Activities: discussing with pcp/other providers, discussing with telephonic nurse case manager/social workers/dc planners, documenting/other paperwork and evaluating patient/reviewing data Status at Discharge: Cognitive status at discharge: mildly impaired cognition , Behavioral status at discharge: cooperative , Functional status at discharge: other assisted ambulation , Overall status at discharge: patient is progressing back to baseline Quality Metrics Clinical Quality Measures [ No reported AMI, CVA or VTE this stay] Coding Level of Care Code Acute Chg FW DC note Diagnoses Acute hyperkalemia E87.5 Acute kidney injury superimposed on CKD N17.9; N18.9 Hypertension I10 COPD (chronic obstructive pulmonary disease) J44.9
[2022-03-15 13:09] LABS: SARS Covid-2 Antigen negative (Negative)
[2022-03-15 15:02] VITALS: BP 146/87; PULSE 76; RESP 16; TEMP 36.8; O2SAT 93
== END 2022-03-15 15:11 | disposition skilled nursing facility (03) ==
LOC: ER 20:26 → MEDSURG 20:54
PROVIDERS: Emergency Medicine; Internal Medicine; Admitting Provider Internal Medicine; Emergency Provider Emergency Medicine; PCP Family Medicine; Visit Provider Student in an Organized Health Care Education/Training Program
DX: E87.5 Hyperkalemia (principal); N17.9 Acute kidney failure, unspecified; I12.9 Hypertensive chronic kidney disease with stage 1 through stage 4 chronic kidney disease, or unspecified chronic kidney disease; N18.9 Chronic kidney disease, unspecified; J44.9 Chronic obstructive pulmonary disease, unspecified; F03.90 Unspecified dementia, unspecified severity, without behavioral disturbance, psychotic disturbance, mood disturbance, and anxiety
CPT/HCPCS: 36415; 36416; 80048; 80053; 82962; 83735; 84100; 84156; 85025; 87426; 93005; 94640; 96361; 96372; 96374; 99285; G0378; J1644; J1815; J7030

== ENCOUNTER 2022-10-17 13:14 | Emergency (ER) | payer MEDICARE, BC, MEDICAID, SELFPAY ==
[2022-10-17 13:19] VITALS: BP 144/88; PULSE 76; TEMP 36.8; O2SAT 92; BMI 22.6
--- NOTE | 2022-10-17 13:20 | XRR_ITS ---
PROCEDURE INFORMATION: Exam: XR Left Femur Exam date and time: 10/17/2022 1:43 PM Age: 76 years old Clinical indication: Injury or trauma; Fall; Blunt trauma; Thigh or upper leg and knee; Left; Prior surgery; Surgery date: 6+ months; Surgery type: Femurs; Additional info: Fall, hairline distal femur fracture TECHNIQUE: Imaging protocol: Radiologic exam of the left femur. Views: 2 views. COMPARISON: No relevant prior studies available. FINDINGS: Bones/joints: Generalized osteopenia No acute fracture. There is a linear lucency in the posterior aspect of the distal femoral shaft and metaphysis on one view. This finding looks like positional artifact and not a real lesion. There is a chronic intertrochanteric fracture status post ORIF with metallic intramedullary giselle and dynamic screw. The bones show anatomic alignment. There is bicompartmental narrowing in the knee suggesting severe osteoarthritis Soft tissues: Unremarkable. XR/XR femur LT min 2V* [id number] IMPRESSION: 1. No acute findings. 2. Osteopenia and osteoarthritis 3. ORIF left hip.
--- NOTE | 2022-10-17 13:22 | ED_ITS ---
HPI - Fall General: Chief Complaint: Extremity Injury, Lower Stated Complaint: LEFT LEG PAIN S/P FALL Time Seen by Provider: 10/17/22 13:16 History of Present Illness: Patient presents to the ER by EMS with complaints of fall at 530 this morning. Patient lives at one of the local nursing homes. Patient is already had her leg x-rayed by mobile unit that showed she had a distal left hairline femur fracture. Patient is here for further evaluation and treatment. Patient does have dementia and patient is ambulatory but uses a wheelchair part of the time. MD complaint: fall Onset (ago): day(s) (Approximately 530 this morning) Fall from: standing Place fall occurred: assisted/SNF Loss of consciousness: None Location of injury: other (Left femur) Review of Systems General: Reports: ROS unobtainable due to mental status (Patient has dementia) PFSH ED PFSH: Medical History (Updated 10/17/22 @ 15:00 by Lenin Sharp DO) Dementia Hypertension Social History (Updated 03/12/22 @ 17:59 by Su Rivera MD) Substance/Drug Use: never Physical Exam Const: COMMON NORMALS: no acute distress, average body habitus, healthy appearing, alert and well nourished ORIENTATION/CONSCIOUSNESS: Yes Other orientation findings (Patient has dementia) HENMT: COMMON NORMALS: normocephalic, atraumatic and moist oral mucous membranes HEAD & SCALP: normocephalic and atraumatic OTHER: Patient is hard of hearing Eye: COMMON NORMALS: Equal, round and reactive pupils present, EOMs intact bilaterally, conjunctivae normal and no scleral icterus CONJUNCTIVA: Yes conjunctivae normal PUPIL: Yes Equal, round and reactive pupils present Neck/C-Spine: COMMON NORMALS: full ROM, no lymphadenopathy, supple, no meningeal signs, no JVD and Thyroid normal THYROID: Thyroid normal Lymph: LYMPHATIC: no lymphadenopathy noted Chest: COMMONS NORMALS: normal inspection of the chest and normal palpation of entire chest wall Resp: COMMON NORMALS: normal respiratory effort, No retractions, No use of accessory muscles and clear to auscultation bilaterally AUSCULTATION: clear to auscultation bilaterally Cardio: COMMON NORMALS: no JVD, regular rate, regular rhythm, S1 normal heart sound present, S2 normal heart sound present, No gallops present (Cardio), No clicks present (Cardio) and No murmurs present (Cardio) RATE: regular rate RHYTHM: regular rhythm HEART SOUNDS: S1 normal heart sound present and S2 normal heart sound present GI: COMMON NORMALS: Normal to inspection, nondistended, normoactive bowel sounds present, Soft to palpation, non-tender and No hepatosplenomegaly present PALPATION: Yes Soft to palpation and Yes No hepatosplenomegaly present Extremity: OTHER: Tender to palpate left distal femur no obvious crepitus, deformity, Neuro: SENSORIUM/ORIENTATION: Yes alert MENINGEAL SIGNS: Yes no meningeal signs Course Vital Signs: Vital signs: Vital Signs Temperature 98.2 F 10/17/22 13:19 Pulse Rate 82 10/17/22 14:00 Respiratory Rate 18 10/17/22 14:00 Blood Pressure 134/81 10/17/22 14:30 Pulse Oximetry 91 10/17/22 14:30 Oxygen Delivery Me thod Nasal Cannula 10/17/22 14:30 Oxygen Flow Rate 3 10/17/22 14:30 MDM - Fall Medical Decision Making Patient was brought here by EMS for a fall at the assisted. Patient had a portable x-ray done that showed a possible left hairline distal femur fracture. She is brought here for further evaluation and treatment. We miguel-rayed it and a 2 view femur that did not show a femur fracture. Radiologist thought it may be just a shadow. Patient be discharged back to the assisted and can follow-up with an x-ray in approximately 1 to 2 weeks. Patient is to follow-up with her primary care practitioner during the same time. Differential Diagnosis Unlikely syncope, dislocation of shoulder region, fracture of wrist, compression fracture, concussion with loss of consciousness or concussion without loss of consciousness Medical Records I reviewed the patient's medical records. Lab Data I reviewed the patient's lab results. Radiology Impressions Femur X-Ray 10/17/22 13:20 IMPRESSION: 1. No acute findings. 2. Osteopenia and osteoarthritis 3. ORIF left hip. Discharge Plan Discharge Patient Disposition: Home Clinical Impression: Fall Qualifiers: Encounter type: initial encounter Qualified Code(s): W19.XXXA - Unspecified fall, initial encounter Condition: Stable Prescriptions: New hydrocodone-acetaminophen 5-325 mg tablet 1 tab PO Q8H PRN (Reason: pain) Qty: 14 0RF No Action albuterol sulfate 90 mcg/actuation HFA aerosol inhaler 2 puff INHALATION Q6H PRN (Reason: Shortness Of Breath Or Wheezing) cetirizine [Zyrtec] 10 mg tablet 5 mg PO DAILY budesonide-formoterol [Symbicort] 80-4.5 mcg/actuation HFA aerosol inhaler 2 puff INHALATION BID acetaminophen [Tylenol] 325 mg capsule 650 mg PO QID PRN (Reason: pain/fever) polyethylene glycol 3350 [Miralax] 17 gram/dose powder 17 gm PO DAILY omeprazole 20 mg capsule,delayed release(DR/EC) 20 mg PO DAILY Spiriva with HandiHaler 18 mcg capsule, w/inhalation device 1 cap inhalation DAILY Rx Instructions: inhale 2 x's with 1 capsule Tums 300 mg (750 mg) Tablet,Chewable 600 mg PO Q4H PRN (Reason: Heartburn) Vitamin D3 25 mcg (1,000 unit) Capsule 25 mcg PO DAILY vitamin A-vitamin C-vit E-min Tablet 1 tab PO DAILY glycerin (adult) Suppository 1 supp [place] DAILY PRN (Reason: Constipation) amlodipine 5 mg tablet 5 mg PO DAILY Qty: 30 0RF Lasix 40 mg tablet 40 mg PO DAILY PRN (Reason: Lower limb swelling or shortness of breath) Qty: 10 0RF Discharge Orders: Discharge ED (Routine); Ordered 10/17/22 Ordered By: Lenin Sharp Referrals: Tony Arana MD [Primary Care Provider] - 1 week Patient Instructions: Fall Prevention Activity Restrictions/Additional Instructions: Your femur was miguel-rayed with a 2 view femur x-ray at the ER. Our x-ray did not show any fracture. Please follow-up with your family practice edition in the next 1 to 2 weeks and you may benefit from another x-ray. Coding Level of Care Code ED Housekeeper/Laundry Assistant for Javier Sen
[2022-10-17] MEDS: HYDROcodone-acetaminophen 5-325 mg Tablet 1 TAB PO (13:59)
[2022-10-17 14:00] VITALS: BP 133/90; PULSE 82; RESP 18; O2SAT 92
[2022-10-17 14:30] VITALS: BP 134/81; O2SAT 91
--- NOTE | 2022-10-17 15:10 | PC.NURSE ---
report called back to NH, pt waiting for ride in room, resting in bed comfortably
== END 2022-10-17 16:53 | disposition home or self-care (01) ==
PROVIDERS: Emergency Provider Emergency Medicine; PCP Family Medicine
DX: M79.605 Pain in left leg (principal); F03.90 Unspecified dementia, unspecified severity, without behavioral disturbance, psychotic disturbance, mood disturbance, and anxiety; I10 Essential (primary) hypertension; W19.XXXA Unspecified fall, initial encounter; Y92.129 Unspecified place in nursing home as the place of occurrence of the external cause; M16.12 Unilateral primary osteoarthritis, left hip; M85.88 Other specified disorders of bone density and structure, other site
CPT/HCPCS: 73552; 99283

== ENCOUNTER 2023-06-28 01:09 | Emergency (ER) | payer MEDICARE, BC, MEDICAID, SELFPAY ==
[2023-06-28] VITALS (7 sets, daily range): BP systolic 115–142; BP diastolic 56–79; PULSE 72–86; RESP 18–22; TEMP 37.5; O2SAT 84–99; BMI 24.2
--- NOTE | 2023-06-28 01:16 | XRR_ITS ---
PROCEDURE INFORMATION: Exam: XR Chest Exam date and time: 06/28/2023 1:26 AM Age: 77 years old Clinical indication: Dyspnea; Additional info: Dyspnea hypoxia TECHNIQUE: Imaging protocol: Radiologic exam of the chest. Views: 1 view. COMPARISON: CR XR chest 2V* [id number] 09/26/2019 12:50 PM FINDINGS: Lungs: Unremarkable. No consolidation. Pleural spaces: Unremarkable. No pleural effusion. No pneumothorax. Heart/Mediastinum: Unremarkable. No cardiomegaly. Vasculature: Advanced diffuse vascular calcification noted. Bones/joints: Moderate scoliosis. Few old rib deformities. Old right clavicle and right proximal humeral deformity. Diffuse osteopenia. XR/XR chest 1V portable [id number] IMPRESSION: No acute findings.
--- NOTE | 2023-06-28 01:16 | W.ED.SOB ---
HPI - SOB/Dyspnea General: Chief Complaint: Shortness of Breath/Dyspnea Stated Complaint: respiratory distress Time Seen by Provider: 06/28/23 01:13 Limitations: altered mental status (Dementia) History of Present Illness: HPI Narrative: Patient presents to the ER from the memory unit at the long-term. Patient was found with an O2 sat of 50%. EMS was called patient received albuterol treatment which increase her to 85% on room air. Patient was put on 6 L of oxygen per nasal cannula her O2 sat went up to 88% patient was then put on oxime mask at 3 L patient's O2 sat went up to 95 %. Patient has severe dementia and cannot provide us with any history. Per review of the chart it appears patient has COPD and CHF. Review of Systems General: Reports: ROS unobtainable due to mental status PFSH ED PFSH: Medical History Hypertension Dementia Social History Substance/Drug Use: never Physical Exam Const: COMMON NORMALS: average body habitus, alert and well nourished HENMT: COMMON NORMALS: normocephalic, atraumatic, hearing grossly normal bilaterally, external ears normal, Normal external nose present, moist oral mucous membranes and oropharynx normal HEAD & SCALP: normocephalic and atraumatic NOSE: Normal external nose present EXTERNAL EAR: Yes external ears normal Neck/C-Spine: COMMON NORMALS: no JVD Chest: COMMONS NORMALS: normal inspection of the chest and normal palpation of entire chest wall Resp: COMMON NORMALS: normal respiratory effort, No retractions and No use of accessory muscles; negative for clear to auscultation bilaterally (Decreased breath sounds bilaterally with occasional wheeze) AUSCULTATION: not clear to auscultation bilaterally (Decreased breath sounds bilaterally with occasional wheeze) Cardio: COMMON NORMALS: no JVD, regular rate, regular rhythm, S1 normal heart sound present, S2 normal heart sound present, No gallops present (Cardio), No clicks present (Cardio), No murmurs present (Cardio) and No rub (Cardio) RATE: regular rate RHYTHM: regular rhythm HEART SOUNDS: S1 normal heart sound present and S2 normal heart sound present Neuro: SENSORIUM/ORIENTATION: Yes alert Course Vital Signs: Vital signs: Vital Signs Temperature 99.5 F 06/28/23 01:10 Pulse Rate 85 06/28/23 02:04 Respiratory Rate 18 06/28/23 01:46 Blood Pressure 136/62 06/28/23 02:04 Pulse Oximetry 98 06/28/23 02:04 Oxygen Delivery Me thod Oxymask 06/28/23 02:04 Oxygen Flow Rate 3 06/28/23 02:04 MDM - SOB/Dyspnea Medical Decision Making Patient was brought in by EMS for shortness of breath. Patient was worked up with chest x-ray CBC CMP troponin, EKG, BMP, influenza, COVID, patient declined ABGs. All the results of which were essentially benign. Patient was titrated off of oxygen down to room air and she maintained her sat in the mid upper 90s. Patient be discharged back to the long-term. Differential Diagnosis Likely acute exacerbation of chronic obstructive airways disease; Unlikely congestive heart failure, community acquired pneumonia, asthma with exacerbation or pulmonary embolism Medical Records I reviewed the patient's medical records. Lab Data I reviewed the patient's lab results. 06/28/23 01:03 06/28/23 01:03 Labs/Radiology: Radiology Impressions Chest X-Ray 06/28/23 01:16 IMPRESSION: No acute findings. Laboratory Results WBC 11.32 10^3/uL (3.29-11.43) 06/28/23 01:03 RBC 3.86 10^6/uL (3.85-5.65) 06/28/23 01:03 Hgb 10.80 g/dL (11.27-16.99) L 06/28/23 01:03 Hct 34.6 % (36-47) L 06/28/23 01:03 MCV 89.6 fl (85-98) 06/28/23 01:03 MCH 28.0 pg (27-33) 06/28/23 01:03 MCHC 31.2 g/dL (30-55) 06/28/23 01:03 RDW 14.2 % (12.1-15.1) 06/28/23 01:03 Plt Count 281 10^3/cmm (157-399) 06/28/23 01:03 MPV 10.3 fL (7.4-10.4) 06/28/23 01:03 Neut % (Auto) 86.0 % 06/28/23 01:03 Lymph % (Auto) 4.9 % 06/28/23 01:03 [place] % (Auto) 7.4 % 06/28/23 01:03 Eos % (Auto) 1.0 % 06/28/23 01:03 Baso % (Auto) 0.4 % 06/28/23 01:03 Neut # (Auto) 9.74 10^3/uL (1.8-7.7) H 06/28/23 01:03 Lymph # (Auto) 0.6 10^3/uL (0.8-4.8) L 06/28/23 01:03 [place] # (Auto) 0.8 10^3/uL (0.2-0.9) 06/28/23 01:03 Eos # (Auto) 0.1 10^3/uL (0.0-0.8) 06/28/23 01:03 Baso # (Auto) 0.0 10^3/uL (0.0-0.1) 06/28/23 01:03 Nucleated RBC % (auto) 0 % 06/28/23 01:03 Nucleated RBCs # 0.0 /100WBC 06/28/23 01:03 Sodium 138 mmol/L (136-145) 06/28/23 01:03 Potassium 3.9 mmol/L (3.5-5.1) 06/28/23 01:03 Chloride 98 mmol/L (98-107) 06/28/23 01:03 Carbon Dioxide 31 mmol/L (22-29) H 06/28/23 01:03 Anion Gap 12.9 (5-19) 06/28/23 01:03 BUN 15 mg/dL (8-23) 06/28/23 01:03 Creatinine 1.0 mg/dL (0.5-0.9) H 06/28/23 01:03 GFR Calculation Not Reportable 06/28/23 01:03 Glucose 103 mg/dL (65-115) 06/28/23 01:03 Calculated Osmolality 287 mOsm/kg (285-295) 06/28/23 01:03 Calcium 9.3 mg/dL (8.5-10.5) 06/28/23 01:03 Magnesium 1.8 mg/dL (1.7-2.3) 06/28/23 01:03 Total Bilirubin 0.4 mg/dL (0.15-1.2) 06/28/23 01:03 AST 12 U/L (0-32) 06/28/23 01:03 ALT 7 U/L (0-33) 06/28/23 01:03 Alkaline Phosphatase 24 U/L (35-105) L 06/28/23 01:03 Troponin T Baseline 30 ng/L (0-10) H 06/28/23 01:03 Troponin T 120 Minute 30.00 ng/L (0-10) H 06/28/23 02:46 Delta Troponin T 0 ABS# (0-10) 06/28/23 02:46 NT-Pro-B Natriuret Pep 395 pg/mL (0-450) 06/28/23 01:03 Total Protein 6.5 g/dL (6.6-8.7) L 06/28/23 01:03 Albumin 3.9 g/dL (3.5-5.2) 06/28/23 01:03 Globulin 2.6 g/dL (1.3-4.6) 06/28/23 01:03 Influenza Type A Ag negative (Negative) 06/28/23 01:26 Influenza Type B Ag negative (Negative) 06/28/23 01:26 SARS-CoV-2 Ag (Rapid) negative (Negative) 06/28/23 01:26 All radiology interpretation(s) finalized by discharge EKG Data EKG 1: I personally reviewed and interpreted this EKG as follows: EKG Interpretation Date: 06/28/23 EKG interpretation time: 01:22 Prior EKG tracings: not available for review Interpretation: Ventricular rate 85 beats minute, DE interval 116, QRS duration 82, QTc of 335, sinus rhythm with short DE interval Discharge Plan Discharge Patient Disposition: Home Clinical Impression: Acute exacerbation of chronic obstructive airways disease Condition: Stable Prescriptions: No Action albuterol sulfate 90 mcg/actuation HFA aerosol inhaler 2 puff INHALATION Q6H PRN (Reason: Shortness Of Breath Or Wheezing) cetirizine [Zyrtec] 10 mg tablet 5 mg PO DAILY budesonide-formoterol [Symbicort] 80-4.5 mcg/actuation HFA aerosol inhaler 2 puff INHALATION BID acetaminophen [Tylenol] 325 mg capsule 650 mg PO QID PRN (Reason: pain/fever) polyethylene glycol 3350 [Miralax] 17 gram/dose powder 17 gm PO DAILY omeprazole 20 mg capsule,delayed release(DR/EC) 20 mg PO DAILY Spiriva with HandiHaler 18 mcg capsule, w/inhalation device 1 cap inhalation DAILY Rx Instructions: inhale 2 x's with 1 capsule Tums 300 mg (750 mg) Tablet,Chewable 600 mg PO Q4H PRN (Reason: Heartburn) Vitamin D3 25 mcg (1,000 unit) Capsule 25 mcg PO DAILY vitamin A-vitamin C-vit E-min Tablet 1 tab PO DAILY glycerin (adult) Suppository 1 supp DE DAILY PRN (Reason: Constipation) amlodipine 5 mg tablet 5 mg PO DAILY Qty: 30 0RF Lasix 40 mg tablet 40 mg PO DAILY PRN (Reason: Lower limb swelling or shortness of breath) Qty: 10 0RF hydrocodone-acetaminophen 5-325 mg tablet 1 tab PO Q8H PRN (Reason: pain) Qty: 14 0RF Discharge Orders: Discharge ED (Routine); Ordered 06/28/23 Ordered By: Lenin Sharp Referrals: Tony Arana MD [Primary Care Provider] - 1 week Patient Instructions: COPD (Chronic Obstructive Pulmonary Disease) (ED) Activity Restrictions/Additional Instructions: Please continue to use your nebulizers as previously directed and take all your medicine as directed. Please follow-up with your family practice physician within the next 7 to 10 days for further evaluation and treatment. If your symptoms worsen return please feel free to return to the ER. Coding Level of Care Code ED Commercial Artist Lettering for Javier Sen
--- NOTE | 2023-06-28 01:17 | ECG_ITS ---
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 Measurements Intervals [place] Rate: 85 P: 63 TN: 116 QRS: 67 QRSD: 82 T: 28 QT: 293 QTc: 349 Interpretive Statements SINUS RHYTHM WITH SHORT TN INTERVAL NONSPECIFIC T-WAVE ABNORMALITY Compared to ECG 03/12/2022 18:24:40 Short TN interval now present T-wave abnormality now present Electronically Signed On 06-28-2023 18:31:07 HOUSE BUILDER by Jeffery Galvez M.D. [email or web address]
[2023-06-28 01:23] LABS: Basophils % 0.4 %; Eosinophils # 0.1 10^3/uL (0.0-0.8); Hematocrit 34.6 % (36-47); Lymphocytes # 0.6 10^3/uL (0.8-4.8); Lymphocytes % 4.9 %; Mean Corpuscular HGB Conc 31.2 g/dL (30-55); Mean Corpuscular Volume 89.6 fl (85-98); Mean Platelet Volume 10.3 fL (7.4-10.4); Monocytes # 0.8 10^3/uL (0.2-0.9); Monocytes % 7.4 %; Neutrophils # 9.74 10^3/uL (1.8-7.7); Nucleated Red Blood Cells % 0 %; Platelet Count 281 10^3/cmm (157-399); Red Blood Count 3.86 10^6/uL (3.85-5.65); Red Cell Distribution Width 14.2 % (12.1-15.1); White Blood Count 11.32 10^3/uL (3.29-11.43)
[2023-06-28 01:39] LABS: Troponin(5th) Baseline 30 ng/L (0-10)
[2023-06-28 01:44] LABS: Influenza A by IFA negative (Negative); Influenza B by IFA negative (Negative)
[2023-06-28] MEDS: ipratropium-albuterol 3 mL Neb INHALATION (01:45)
[2023-06-28 01:47] LABS: Alanine Aminotransferase 7 U/L (0-33); Albumin Level 3.9 g/dL (3.5-5.2); Alkaline Phosphatase 24 U/L (35-105); Anion Gap 12.9 (5-19); Aspartate Amino Transferase 12 U/L (0-32); Blood Urea Nitrogen 15 mg/dL (8-23); Calcium 9.3 mg/dL (8.5-10.5); Carbon Dioxide 31 mmol/L (22-29); Chloride 98 mmol/L (98-107); Creatinine Clr Calc Pharmacy 45.9629; Globulin 2.6 g/dL (1.3-4.6); Glucose 103 mg/dL (65-115); Magnesium 1.8 mg/dL (1.7-2.3); NT Pro B Type Natriuretic Pept 395 pg/mL (0-450); Osmolality Calculated 287 mOsm/kg (285-295); Potassium 3.9 mmol/L (3.5-5.1); Sodium 138 mmol/L (136-145); Total Bilirubin 0.4 mg/dL (0.15-1.2); Total Protein 6.5 g/dL (6.6-8.7)
[2023-06-28 01:47] LABS: SARS Covid-2 Antigen negative (Negative)
[2023-06-28 03:11] LABS: Troponin 5 2HR Delta 0 ABS# (0-10)
== END 2023-06-28 09:22 | disposition home or self-care (01) ==
PROVIDERS: Emergency Provider Emergency Medicine; PCP Family Medicine
DX: J44.1 Chronic obstructive pulmonary disease with (acute) exacerbation (principal); Z11.52 Encounter for screening for COVID-19; I10 Essential (primary) hypertension; F03.90 Unspecified dementia, unspecified severity, without behavioral disturbance, psychotic disturbance, mood disturbance, and anxiety
CPT/HCPCS: 71045; 80053; 83735; 83880; 84484; 85025; 87426; 87804; 93005; 94640; 99285